=== PATIENT | female | born 1985 | race Caucasian/White ===

== ENCOUNTER 2017-06-28 13:57 | Emergency (ER) | payer OTHER, MEDICAID, SELFPAY | END 2017-06-28 16:21 | disposition home or self-care (01) | PROVIDERS: Emergency Provider Emergency Medicine; PCP Family Medicine; Visit Provider Emergency Medicine | DX: R11.2 Nausea with vomiting, unspecified (principal); E86.0 Dehydration; R19.7 Diarrhea, unspecified | CPT/HCPCS: 80053; 81003; 81025; 83690; 85025; 96361; 96374; 99058; 99284; J2405 ==

== ENCOUNTER → 2018-01-07 08:36 | Outpatient (CLI) | payer OTHER, MEDICAID, SELFPAY ==
--- NOTE | 2018-01-07 | DI.US.S_ITS ---
PROCEDURE: US OB <= 14 WEEKS FETUS INDICATIONS: SIZE AND DATES OUTSIDE/PRIOR DATING DATA: Last menstrual period (LMP): 10/16/17. LMP-based estimated date of delivery (ASHWIN): 07/23/18. First dating scan (date and location): 01/07/18. Estimated date of delivery (ASHWIN) from first dating scan: 07/25/18. TECHNIQUE: Real-time scanning was performed of the fetus and maternal pelvic organs, with image documentation. Endovaginal scanning was also performed to better visualize the fetus and maternal ovaries. COMPARISON: None. FINDINGS: Embryo: 4.9 cm crown-rump length correlates with a gestational age of 11 weeks 4 days. Heart rate 169 beats per minute. Measurement variability in dating: +/- 4 weeks by LMP, +/- 7 days by mean sac diameter (use before 6 weeks gestation if crown-rump length not able to be measured), +/- 5 days by crown-rump length (up to 8 weeks 6 days gestation), +/- 7 days by crown-rump length (up to 13 weeks 6 days gestation). Maternal organs: Ovaries normal considering gestational status. Limited images through the kidneys demonstrate no hydronephrosis. IMPRESSION: 11 week 4 day gestational age with delivery date projected to be centered on 07/25/18, lesser -5 days. anatomic survey at 21 weeks gestation is recommended. Dictated by: Charlie Trujillo M.D. on 01/07/2018 at 9:27 Approved by: Charlie Trujillo M.D. on 01/07/2018 at 9:28
== END ==
PROVIDERS: PCP Family Medicine; Visit Provider Family Medicine
DX: Z34.91 Encounter for supervision of normal pregnancy, unspecified, first trimester (principal); Z36.89 Encounter for other specified antenatal screening; Z3A.11 11 weeks gestation of pregnancy
CPT/HCPCS: 76801

== ENCOUNTER → 2018-03-04 10:52 | Outpatient (CLI) | payer OTHER, MEDICAID, SELFPAY ==
--- NOTE | 2018-03-04 | DI.US.S_ITS ---
PROCEDURE: US OB >= 14 WEEKS FETUS INDICATIONS: SCAN OUTSIDE/PRIOR DATING DATA: Last menstrual period (LMP): 10/16/17. LMP-based estimated date of delivery (ASHWIN): 07/23/18. First dating scan (date and location): 01/07/18. Estimated date of delivery (ASHWIN) from first dating scan: 07/25/18. TECHNIQUE: Real-time scanning was performed of the fetus, with image documentation and biometric measurements. Endovaginal scanning: No COMPARISON: [facility], OB <= 14 WEEKS FETUS, 01/07/2018, 8:56. FINDINGS: General: A single living intrauterine gestation is present. Presentation: Transverse. Placenta: Placental position is posterior, without previa. Amniotic fluid index: 15.4 cm, normal range is 5-24 cm. heart rate: 147 beats per minute. Maternal cervical canal: 4.7 cm long. Normal lower limit is 2.5 cm. biometrics: Biparietal diameter: 20 weeks 0 days Head circumference: 19 weeks 6 days Abdominal circumference: 19 weeks 6 days Femur length: 19 weeks 4 days Estimated gestational age from initial scan: 19 weeks 4 days Composite gestational age from present scan: 19 weeks 6 days Estimated weight and percentile: 310 g; 55th percentile Measurement variability for biometric dating: +/- 7 days from 14 weeks to 15 weeks 6 days gestation, +/- 10 days from 16 weeks to 21 weeks 6 days gestation, +/- 2 weeks from 22 weeks to 27 weeks 6 days gestation, +/- 3 weeks for 28 weeks gestation or later. weight reference: 4500 g or EFW >90/95% is considered macrosomia or large for gestational age. EFW <10% is small for gestational age. EFW 5% or less is considered intra-uterine growth restriction. Anatomic survey: Neuro: Ventricles are non-dilated at less than 10 mm. Cisterna magna is normal at 3-11 mm. Cerebellum is normal in size and morphology. Nuchal skin fold: Normal at less than 6 mm between 14-21 weeks gestational age. Face: Nose and lips, facial profile are normal. Spine: No evidence for spina bifida. Heart: 4-chambered heart is present, with normal ventricular outflow tracts. Diaphragm: Diaphragm is intact. Stomach: Left-sided stomach is present. Kidneys: No hydronephrosis. Normal is less than 5 mm in 2nd trimester, less than 7 mm in 3rd trimester. Cord: 3-vessel cord has orthotopic insertion. Bladder: Normal in size. Extremities: All 4 extremities identified. IMPRESSION: 1. Single living IUP redemonstrated and interval growth is normal. 2. Normal anatomic survey. Dictated by: Samy STARKEY Interpreted: Lauren Bolden MD on 03/04/2018 at 12:03 Approved by: Lauren Bolden MD, PhD on 03/04/2018 at 14:51
== END ==
PROVIDERS: PCP Family Medicine; Visit Provider Family Medicine
DX: Z36.89 Encounter for other specified antenatal screening (principal); Z3A.19 19 weeks gestation of pregnancy
CPT/HCPCS: 76811

== ENCOUNTER → 2018-06-24 15:24 | Outpatient (REF) | payer OTHER, MEDICAID, SELFPAY | LOC: LAB 15:24 | PROVIDERS: PCP Family Medicine; Visit Provider Family Medicine | DX: Z32.01 Encounter for pregnancy test, result positive (principal) | CPT/HCPCS: 87081; 87147 ==

== ENCOUNTER → 2018-07-16 14:15 | Outpatient (REF) | payer OTHER, MEDICAID, SELFPAY | LOC: LAB 14:15 | PROVIDERS: PCP Family Medicine; Visit Provider Family Medicine | DX: Z34.90 Encounter for supervision of normal pregnancy, unspecified, unspecified trimester (principal) | CPT/HCPCS: 87081; 87147 ==

== ENCOUNTER 2018-07-28 09:43 | Outpatient (CLI) | payer OTHER, MEDICAID, SELFPAY | END 2018-07-28 10:20 | disposition home or self-care (01) | LOC: OB 07-29 12:52 | PROVIDERS: PCP Family Medicine; Visit Provider Family Medicine | DX: O48.0 Post-term pregnancy (principal); Z3A.40 40 weeks gestation of pregnancy | CPT/HCPCS: 59025; G0378; G0379 ==

== ENCOUNTER → 2018-07-29 11:50 | Outpatient (CLI) | payer OTHER, MEDICAID, SELFPAY ==
--- NOTE | 2018-07-29 | DI.US.S_ITS ---
PROCEDURE: US OB LIMITED INDICATIONS: POST DATES, ELISHA OUTSIDE/PRIOR DATING DATA: Last menstrual period (LMP): 10/16/17. LMP-based estimated date of delivery (ASHWIN): 07/23/18. First dating scan (date and location): 01/07/18. Estimated date of delivery (ASHWIN) from first dating scan: 07/25/18. TECHNIQUE: Real-time scanning was performed of the fetus, with image documentation and biometric measurements. Endovaginal scanning: No COMPARISON: [facility], OB >= 14 WEEKS FETUS, 03/04/2018, 11:13. FINDINGS: General: A Presentation: Vertex with spine to the maternal left. Placenta: Placental position is posterior right lateral, without previa. Amniotic fluid index: 14 cm, normal range is 5-24 cm. heart rate: 155 beats per minute. Maternal cervical canal: Not well-seen. IMPRESSION: Single living IUP redemonstrated and amniotic fluid index is normal. Dictated by: Samy Clark [facility] Interpreted: Vijay Hammond MD on 07/29/2018 at 13:05 Approved by: Vijay Hammond M.D. on 07/29/2018 at 14:29
== END ==
PROVIDERS: Visit Provider Family Medicine
DX: O48.0 Post-term pregnancy (principal); Z3A.40 40 weeks gestation of pregnancy
CPT/HCPCS: 76815

== ENCOUNTER 2018-07-31 15:41 | Outpatient (CLI) | payer OTHER, MEDICAID, SELFPAY | END 2018-07-31 18:12 | disposition home or self-care (01) | LOC: LABOR 18:00 → OB 08-04 16:35 | PROVIDERS: Visit Provider Obstetrics & Gynecology | DX: O48.0 Post-term pregnancy (principal); Z3A.41 41 weeks gestation of pregnancy | CPT/HCPCS: 59025; 59050; G0378; G0379 ==

== ENCOUNTER 2018-08-03 17:55 | Inpatient (IN) | payer OTHER, MEDICAID, SELFPAY ==
[2018-08-03] MEDS: miSOPROStol 25 MCG TABLET VAG (19:40)
[2018-08-03 20:51] VITALS: BP 131/66
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
[2018-08-04 09:10] LABS: Add Manual Diff / Slide Review NO; Basophils Absolute Auto 0 /uL (0-100); Basophils Percent Auto 0.2 % (0-2); Eosinophils Absolute Auto 200 /uL (0-450); Eosinophils Percent Auto 1.2 % (2-4); Hematocrit 37.4 % (36-46); Hemoglobin 12.9 g/dL (12.0-16.0); Lymphocytes Absolute Auto 1400 /uL (1100-4500); Lymphocytes Percent Auto 10.7 % (25-40); Mean Corpuscular HGB Conc 34.5 % (30-36); Mean Corpuscular Hemoglobin 32.5 PG (26-34); Monocytes Absolute Auto 1100 /uL (0-900); Neutrophils Absolute Auto 10800 /uL (1500-7000); Neutrophils Percent Auto 79.9 % (50-75); Platelet Count 222 X10^3/uL (150-400); Red Blood Cell Count 3.98 X10^6/uL (4.0-5.2); Red Cell Distribution Width 13.2 % (11.6-14.8); White Blood Cell Count 13.5 X10^3/uL (4.5-11.0)
--- NOTE | 2018-08-04 13:12 | PM.OBPNLAB ---
Date/Time Date Patient Seen: 08/04/18 Time Patient Seen: 13:13 Pain Control Pain control: tolerating well Pelvic Exam Dilation (cm): 0 Effacement (%): 506 station: 0 Amniotic membrane status: Intact Contractions Contractions on admission: none Contraction pattern: Irregular Contraction intensity: Moderate Status status: Category l Assessment and Plan Assessment: induction ongoing Plan: continuous present management Comments: Discussed with patient will check blood sugar. We discussed management options. Needs to have a more intense contraction pattern. Cervix is slightly more thin but no other change. Discussed Pitocin she would like to hold till a little while. Will give her 3 or 4 more hours to see if she makes changes she does not and will need Pitocin if she does we may consider rupture. She understands questions answered to both her and her significant other.
--- NOTE | 2018-08-04 17:10 | PM.OBPNLAB ---
Date/Time Date Patient Seen: 08/04/18 Time Patient Seen: 17:11 Pain Control Pain control: tolerating well Pelvic Exam Dilation (cm): 0 Effacement (%): 60 station: -1 Amniotic membrane status: Intact Contractions Contraction frequency (min): 3 Contraction pattern: Irregular Contraction intensity: Moderate Status status: Category l Assessment and Plan Assessment: active labor Plan: continuous present management Comments: Patient with too many contractions repeat Cytotec but no cervical change. We had long discussion about Pitocin which was be the recommended course at this point. Patient would like to give it some more time see if we can rupture at this point she still closed and will discuss in a.m.. She would like to start Pitocin in a.m.. Will do that and 5 or r 6 tomorrow morning and prepare for cervical change. They understand discussed Pitocin extensively questions answered.
[2018-08-04] MEDS: DINOPROSTONE VAG (CERVIDIL) 10 MG VAG (20:20)
[2018-08-04] MEDS: LACTATED RINGERS 1,000 ML 1000 ML IV (21:30)
[2018-08-05] MEDS: OXYTOCIN PREMIX 30 UNIT/500 ML PLAST..BAG IV (05:49)
[2018-08-05] MEDS: LACTATED RINGERS 1,000 ML 100 ML IV ×2 (05:51→17:06)
--- NOTE | 2018-08-05 08:15 | PM.OBPNLAB ---
Date/Time Date Patient Seen: 08/05/18 Time Patient Seen: 08:16 Pain Control Pain control: tolerating well Pelvic Exam Effacement (%): 80 station: -1 Amniotic membrane status: Intact Contractions Contraction frequency (min): 3 Contraction pattern: Regular Contraction intensity: Moderate Status status: Category l Assessment and Plan Assessment: induction ongoing Plan: continuous present management Comments: Patient with some changed last night with Cervidil. Having contractions with Pitocin will see how she does. She has made cervical change. Hopefully we can consider rupture at noon. If not may back back up and replace Cervidil. Have to see how the day goes. Hopefully can rupture soon. Pain control was discussed. Seems to be doing okay. Otherwise no questions today. Understands goals and procedure.
--- NOTE | 2018-08-05 08:18 | P.PNOB_ITS ---
Date/Time Date Patient Seen: 08/05/18 Time Patient Seen: 08:16 Pain Control Pain control: tolerating well Pelvic Exam Effacement (%): 80 station: -1 Amniotic membrane status: Intact Contractions Contraction frequency (min): 3 Contraction pattern: Regular Contraction intensity: Moderate Status status: Category l Assessment and Plan Assessment: induction ongoing Plan: continuous present management Comments: Patient with some changed last night with Cervidil. Having contractions with Pitocin will see how she does. She has made cervical change. Hopefully we can consider rupture at noon. If not may back back up and replace Cervidil. Have to see how the day goes. Hopefully can rupture soon. Pain co ntrol was discussed. Seems to be doing okay. Otherwise no questions today. Understands goals and procedure.
--- NOTE | 2018-08-05 12:49 | PM.OBPNLAB ---
Date/Time Date Patient Seen: 08/05/18 Time Patient Seen: 12:49 Pain Control Pain control: tolerating well Pelvic Exam Dilation (cm): 0 Effacement (%): 80 station: -1 Amniotic membrane status: Intact Contractions Contraction frequency (min): 3 Contraction pattern: Regular Contraction intensity: Moderate Status status: Category l Assessment and Plan Assessment: induction ongoing Plan: continuous present management Comments: Really known significant change there has been some improvement in cervix coming forward. She is having a little more intensity. At this point will continue Pitocin may need to consider repeating Cervidil if not making any change by tonight. Unable to rupture through current cervix. Discussed with patient she understands questions answered
--- NOTE | 2018-08-05 17:36 | PM.OBPNLAB ---
Date/Time Date Patient Seen: 08/05/18 Time Patient Seen: 17:37 Pain Control Pain control: tolerating well Pelvic Exam Dilation (cm): 0 Effacement (%): 80 station: -1 Amniotic membrane status: Intact Contractions Contractions on admission: irregular Pitocin rate (mU/min): 20 Contraction frequency (min): 3 Contraction pattern: Regular Contraction intensity: Moderate Status status: Category l Assessment and Plan Assessment: induction ongoing Plan: continuous present management Comments: Still not a lot of cervical change. Not been able to get an active labor pattern. Will discontinue pit restarts of a dull if not improved in the next 2 hours feed and start it again in the morning. Discussed with both her and her significant other. She understands questions answered
[2018-08-05] MEDS: DINOPROSTONE VAG (CERVIDIL) 10 MG VAG (21:07)
--- NOTE | 2018-08-06 07:59 | PM.OBPNLAB ---
Date/Time Date Patient Seen: 08/06/18 Time Patient Seen: 07:59 Pain Control Pain control: tolerating well Pelvic Exam Dilation (cm): 0 Effacement (%): 80 station: -1 Amniotic membrane status: Intact Contractions Contraction frequency (min): 3 Contraction pattern: Regular Contraction intensity: Moderate Status status: Category l Assessment and Plan Assessment: induction ongoing Plan: continuous present management Comments: No cervical significant change. Patient has had Pitocin and pretty extensive prostate gland and treatment without significant change. She still closed so Pickering bulb or laminae area are not options. I do not think there is any other options at this point other than section we could continue Pitocin today and see how it goes but we have not been successful and had no cervical change do not really understand why we discussed the case it appears as if it will probably be an operative delivery. She is going to make a decision if we want to do it this morning or later tonight.
--- NOTE | 2018-08-06 09:38 | PM.OBPNLAB ---
Date/Time Date Patient Seen: 08/06/18 Time Patient Seen: 09:38 Pain Control Pain control: tolerating well Pelvic Exam Dilation (cm): 0 Effacement (%): 80 station: -1 Amniotic membrane status: Intact Contractions Contraction frequency (min): 3 Contraction pattern: Regular Contraction intensity: Moderate Status status: Category l Assessment and Plan Assessment: other Plan: Comments: Long discussion with patient. She has had no cervical warp changer the last 36 hours she has had multiple treatments without success and at this point believe operative delivery is only option. We discussed possible Pitocin today but we had no ability to get any contractions working and I do not think it is going to be helpful. We discussed with patient extensively we discussed today which she is not ready to do versus tomorrow she will be discharged to home baby looks very good still has category 1 strip and labor precautions discussed. Discussed consent infection bleeding injury to bowel and bladder injury to baby bleeding need for transfusion, hysterectomy, . Poor healing. Discussed process procedure from the time she gets here into the time surgery is done and she is back with her baby. Questions were answered. Patient will be back at 9:30 a.m. in morning.
--- NOTE | 2018-08-06 09:41 | P.PNOB_ITS ---
Date/Time Date Patient Seen: 08/06/18 Time Patient Seen: 09:38 Pain Control Pain control: tolerating well Pelvic Exam Dilation (cm): 0 Effacement (%): 80 station: -1 Amniotic membrane status: Intact Contractions Contraction frequency (min): 3 Contraction pattern: Regular Contraction intensity: Moderate Status status: Category l Assessment and Plan Assessment: other Plan: Comments: Long discussion with patient. She has had no cervical supervisor policy change clerks the last 36 hours she has had multiple treatments without success and at this point believe operative delivery is only option. We discussed possible Pitocin today but we had no ability to get any contractions working and I do not think it is going to be helpful. We discussed with patient extensively we discussed C- section today which she is not ready to do versus tomorrow she will be discharged to home baby looks very good still has category 1 strip and labor precautions discussed. Discussed consent infection bleeding injury to bowel and bladder injury to baby bleeding need for transfusion, hysterectomy, . Poor healing. Discussed process procedure from the time she gets here into the time surgery is done and she is back with her baby. Questions were answered. Patient will be back at 9:30 a.m. in morning.
[2018-08-06 10:19] VITALS: BP 131/66; PULSE 80; RESP 18; TEMP 36.4
--- NOTE | 2018-08-06 17:18 | PM.OBDS.1 ---
Discharge Providers Date of admission: 08/03/18 17:55 Discharge Date: 08/06/18 Discharge provider: Basil Correa MD Summary Date Patient Seen: 08/06/18 Time Patient Seen: 07:18 Procedures: Attempted induction both Cytotec, Cervidil, Pitocin Patient was brought in for post dates. She had 1 Cytotec placed on the 1st night and began jj pretty frequently in the 2-3 minute range. Minimal in to mild to moderate intensity. Secondary that she had not had a 2nd 1 placed. She had some cervical change the 1st day due to patient's request nothing further was done through the course of that day it appeared it is she was making change baby did come down a little bit but no cervical change happened. Cervidil was then placed with some slight improvement in effacement over the next 12 hours. Pitocin was began but she did not have any significant ability to get into labor. She never attained anything other than every 2 minutes contractions that were moderate in intensity with no cervical change. Would discontinue the Pitocin restarted the Cervidil and continued to have no significant improvement. heart monitor was reactive through the course of this induction. After long discussion with patient understanding that at 42 weeks options are limited and were unable to get her into labor. Unable to use Pickering bulb or laminae area secondary to her cervix. This point we elected for operative delivery. Since baby looked good patient would requesting the next day we will set up tomorrow routine signs concern discussed. movement discussed. Will see tomorrow. Time Spent with Patient Total time spent providing and/or coordinating discharge services: Objective Labs Result Diagrams: 08/03/18 08:55 Exam Vital Signs (past 8 hours): - 08/06/18 10:19 Temperature 97.5 F L Pulse Rate 80 Respiratory Rate 18 Blood Pressure 131/66 Discharge Plan Discharge Plan Patient Disposition: Home Discharge Med Rec/Prescriptions Prescriptions: No Action No Known Home Medications RF: 0 Discharge Data Attending Provider: Basil Correa Admit Date/Time: 08/03/18 17:55 Discharges patient from system. Discharge Date/Time: 08/06/18 10:20
== END 2018-08-06 10:20 | disposition home or self-care (01) | DRG 951 ==
PROVIDERS: Admitting Provider Family Medicine; Visit Provider Family Medicine
DX: O48.0 Post-term pregnancy (principal); O61.0 Failed medical induction of labor; Z3A.41 41 weeks gestation of pregnancy
CPT/HCPCS: 85025; 86850; 86900; 86901; G0379; J2590

== ENCOUNTER 2018-08-07 07:11 | Inpatient (IN) | payer OTHER, MEDICAID, SELFPAY ==
[2018-08-07 08:23] VITALS: BP 133/77
[2018-08-07] MEDS: LACTATED RINGERS 1,000 ML 1000 ML IV ×2 (08:40→10:00)
[2018-08-07 09:21] LABS: Add Manual Diff / Slide Review NO; Basophils Absolute Auto 0 /uL (0-100); Basophils Percent Auto 0.2 % (0-2); Eosinophils Absolute Auto 100 /uL (0-450); Eosinophils Percent Auto 0.7 % (2-4); Hematocrit 36.8 % (36-46); Hemoglobin 12.5 g/dL (12.0-16.0); Lymphocytes Absolute Auto 1100 /uL (1100-4500); Lymphocytes Percent Auto 8.7 % (25-40); Mean Corpuscular HGB Conc 33.8 % (30-36); Mean Corpuscular Hemoglobin 31.8 PG (26-34); Monocytes Absolute Auto 1100 /uL (0-900); Monocytes Percent Auto 8.8 % (3-14); Neutrophils Absolute Auto 10000 /uL (1500-7000); Neutrophils Percent Auto 81.6 % (50-75); Platelet Count 224 X10^3/uL (150-400); Red Blood Cell Count 3.92 X10^6/uL (4.0-5.2); Red Cell Distribution Width 13.1 % (11.6-14.8); White Blood Cell Count 12.3 X10^3/uL (4.5-11.0)
--- NOTE | 2018-08-07 10:47 | PM.PN.1 ---
Subjective Date Patient Seen: 08/07/18 Time Patient Seen: 10:47 Interval history: Patient much more comfortable. Has decided that this is the right choice. Feeling good about that. No other changes or complaints. Good movement. No leaking fluid no bleeding. NST is reactive this morning. Does not have any definitive questions but does have a plan which we discussed. Exam Vital Signs (past 8 hours): - 08/07/18 08:23 Blood Pressure 133/77 Narrative Exam Narrative: Alert smiling female in no acute distress. Lungs are clear. Heart regular rate and rhythm. Abdomen is soft positive bowel sounds gravid vertex extremities without cyanosis clubbing edema. Objective Labs Result Diagrams: 08/07/18 08:50 Labs: Laboratory Results - last 24 hr 08/07/18 08/07/18 08:50 08:50 WBC 12.3 H RBC 3.92 L Hgb 12.5 Hct 36.8 MCV 94.0 MCH 31.8 MCHC 33.8 RDW 13.1 Plt Count 224 Neut % (Auto) 81.6 H Lymph % (Auto) 8.7 L [place] % (Auto) 8.8 Eos % (Auto) 0.7 L Baso % (Auto) 0.2 Neut # (Auto) 61829 H Lymph # (Auto) 1100 [place] # (Auto) 1100 H Eos # (Auto) 100 Baso # (Auto) 0 Blood Type O Positive Antibody Screen Negative Assessment & Plan Assessment & Plan narrative: 42+ week intrauterine with failed induction here for his primary low transverse section. Questions were answered consent was signed patient is comfortable and will proceed.
--- NOTE | 2018-08-07 12:15 | PM.OP.1 ---
Operative Date/Time/Diagnoses Date of procedure: 08/07/18 Time of procedure: 12:15 Pre-op diagnosis: Forty-two +week intrauterine Failed induction Post-op diagnosis: same Procedure & Clinicians Procedure: Primary low transverse section Same procedure as scheduled: Yes Indications: Attempted induction for 3 and half days without success elective section Surgeon: Basil Correa Reed Cleaner: Mally Hernandez Click Yes if Unassisted: No Anesthesia Type: Spinal Operative Notes Findings: Viable male weight and Apgars not available no resuscitation required. Positive light meconium. Normal pelvic organs Closure Type: primary Specimen(s): none sent Applied: catheter Estimated Blood Loss (mL): 400 Blood products transfused: none Procedure in detail: Patient presented an NST was reactive. Consent was rediscussed resigned. Patient was taken to the operative theater and scopes procedure was followed. Spinal was placed without complications. Excellent result. She was placed in the supine position prepped and draped in usual manner after Pickering was placed. Pfannenstiel incision was made through skin without complications. His blunt dissection down to the subcutaneous tissue. One bleeder in the midline was cauterized. The fascia was identified entered in the midline. extended laterally with curved mayos. Rodriguez reused elevate the fascia and bluntly dissected off the muscle layer except in the midline where it was ceased removed with scissors. This was repeated inferiorly without complications. Muscle layer was easily peritoneum was identified. was elevated with hemostats entered under direct visualization. Extended bluntly. Bladder blade was placed. Bladder flap was then incised and developed. Bladder blade was then placed into the bladder flap. A low transverse incision was then made for scored across the uterus and then just sharply dissected until meconium fluid was noted. was extended laterally bluntly. Head was then mobilized and delivered (no nuchal cord. Rest child was then delivered. No resuscitation was required. Bulb suction. Cord was clamped and cut. Handed off to awaiting nurse. Crying lustly. Cord bloods were obtained. Placenta was then delivered manually intact. wet lap sponge to used to swipe the inside of the uterine contents for products of conception. This was done twice. No bleeding was noted. ring forceps were used grafts corner of the uterine incision along with inferior aspect he a ring forceps was placed through the cervix and vagina. Handed off the operative theater. Uterine incision was closed with running locked 0 chromic. Aseptic a imbricating suture was then used without complications excellent bleeding control. Abdominal contents were then irrigated with saline and removed. Uterine incision was then re-evaluated and found to be dry. 3 0 Vicryl was used to close bladder flap in a running manner. Peritoneum was then closed with 3 0 Vicryl. Three interrupted 2 0 Vicryl sutures were used to approximate the muscle layer. Fascia was closed with running 0 Vicryl. 330 Vicryl interrupted sutures were used to approximate the wound edge. Closed skin with running 4.0 subcuticular sutures. Steri-Strips and dressing was applied. All sponge instrument and needle counts were correct. Mother and infant stable condition Complications: none Condition: stable Plan for aftercare: Transferred to labor and delivery
[2018-08-07] MEDS: DEXTROSE 5%-LACTATED RINGERS 1,000 ML 100 ML IV (13:15)
[2018-08-07] MEDS: KETOROLAC 30 MG/ML VIAL IV (18:45)
[2018-08-07] MEDS: OXYCODONE/ACETAMINOPHEN 5/325 TABLET 1 TAB PO (21:16)
[2018-08-08] MEDS: KETOROLAC 30 MG/ML VIAL IV ×2 (00:35→07:39)
[2018-08-08 06:22] LABS: Add Manual Diff / Slide Review NO; Basophils Absolute Auto 0 /uL (0-100); Basophils Percent Auto 0.3 % (0-2); Eosinophils Absolute Auto 200 /uL (0-450); Eosinophils Percent Auto 1.5 % (2-4); Hematocrit 33.8 % (36-46); Hemoglobin 11.6 g/dL (12.0-16.0); Lymphocytes Absolute Auto 1400 /uL (1100-4500); Lymphocytes Percent Auto 13.6 % (25-40); Mean Corpuscular HGB Conc 34.4 % (30-36); Mean Corpuscular Hemoglobin 32.2 PG (26-34); Mean Corpuscular Volume 93.5 fL (80-100); Monocytes Absolute Auto 1000 /uL (0-900); Monocytes Percent Auto 9.8 % (3-14); Neutrophils Absolute Auto 7500 /uL (1500-7000); Neutrophils Percent Auto 74.8 % (50-75); Platelet Count 194 X10^3/uL (150-400); Red Blood Cell Count 3.61 X10^6/uL (4.0-5.2); Red Cell Distribution Width 13.1 % (11.6-14.8)
--- NOTE | 2018-08-08 13:16 | PM.OBPNLAB ---
Pelvic Exam station: -1
--- NOTE | 2018-08-08 13:17 | PM.PN.1 ---
Subjective Date Patient Seen: 08/08/18 Time Patient Seen: 13:17 Interval history: Doing well without problems. Had some grogginess with oxycodone. Urinating normally breast feeding going well. Lochia normal Exam Vital Signs (past 8 hours): Afebrile, vital signs stable Chest clear to auscultation Cor regular rate and rhythm Abdomen benign. Positive bowel sounds, uterus below the umbilicus. Incision clean and dry Extremities trace edema, DTRs 3+ at the patella no clonus Objective Labs Result Diagrams: 08/08/18 06:06 Labs: Laboratory Results - last 24 hr 08/08/18 06:06 WBC 10.0 RBC 3.61 L Hgb 11.6 L Hct 33.8 L MCV 93.5 MCH 32.2 MCHC 34.4 RDW 13.1 Plt Count 194 Neut % (Auto) 74.8 Lymph % (Auto) 13.6 L [place] % (Auto) 9.8 Eos % (Auto) 1.5 L Baso % (Auto) 0.3 Neut # (Auto) 7500 H Lymph # (Auto) 1400 [place] # (Auto) 1000 H Eos # (Auto) 200 Baso # (Auto) 0 Assessment & Plan Assessment & Plan narrative: Postop day 1. Status post primary section secondary to inability to develop labor. Doing well. Routine care
--- NOTE | 2018-08-08 13:17 | P.PNOB_ITS ---
Pelvic Exam station: -1
[2018-08-08] MEDS: IBUPROFEN 600 MG TABLET PO ×2 (13:37→19:33)
[2018-08-08] MEDS: HYDROCODONE/ACET 5/325 TABLET 1 TAB PO ×2 (13:50→19:33)
[2018-08-09] MEDS: IBUPROFEN 600 MG TABLET PO ×2 (01:44→08:29)
[2018-08-09] MEDS: HYDROCODONE/ACET 5/325 TABLET 1 TAB PO ×2 (01:45→08:29)
[2018-08-09] MEDS: DOCUSATE 250 MG CAPSULE PO (08:29)
[2018-08-09 09:01] VITALS: BP 133/77; PULSE 70; RESP 18; TEMP 36.6
--- NOTE | 2018-08-09 09:55 | P.DS_ITS ---
Discharge Providers Date of admission: 08/07/18 07:11 Discharge Date: 08/09/18 Consults: 08/07/18 12:10 Consult to [employer] Routine Comment: Discharge provider: Mally Hernandez MD Summary Date Patient Seen: 08/09/18 Time Patient Seen: 09:53 Hospital Course: Patient with prolonged hospitalizations with attempts to initiate labor at 42 weeks gestation on IMV able to initiate labor after pea gel x2 and performed. Uncomplicated and post . Patient discharged home on day 2. In stable condition with routine instructions regarding infection, feeding, etc. Discharge medications Motrin 600 mg 3 times daily with food and hydrocodone as needed Discharge activity, pelvic rest, no driving, no heavy lifting Discharge follow-up with Dr. Correa on Friday Peripartum Data Delivery Method: Section complications: none Status at Discharge Cognitive/behavioral status at discharge: oriented Functional status at discharge: independent ambulation Overall status at discharge: patient is progressing back to baseline Time Spent with Patient Total time spent providing and/or coordinating discharge services: Greater than 30 minutes Objective Labs Result Diagrams: 08/08/18 06:06 Exam Narrative Exam Narrative: Afebrile vital signs are stable Chest clear to auscultation Cor regular rate and rhythm Abdomen: Positive bowel sounds, soft, nontender, nondistended Incision clean and dry Uterus below the umbilicus no significant tenderness Extremities edema, DTRs are intact Discharge Plan Discharge Plan Patient Disposition: Home Discharge Med Rec/Prescriptions Prescriptions: New hydrocodone-acetaminophen 5-325 mg Tablet 1 tab PO Q4HR PRN (Reason: Pain, Moderate (4-6)) Qty: 40 RF: 0 ibuprofen 600 mg Tablet 600 mg PO Q6HR PRN (Reason: As Needed For Fever/Mild Pain) Qty: 40 RF: 0 No Action No Known Home Medications RF: 0 Provider Discharge Instructions Diet comment: as tolerated Activity: pelvic rest, no heavy lifting Discharge Data Attending Provider: Basil Correa Admit Date/Time: 08/07/18 07:11
[2018-08-09] MEDS: MEASLES,MUMPS,RUBELLA VACC/PF 0.5 ML VIAL SUBCUT (15:00)
== END 2018-08-09 15:30 | disposition home or self-care (01) | DRG 540 ==
PROVIDERS: Admitting Provider Family Medicine; Visit Provider Family Medicine
DX: O48.0 Post-term pregnancy (principal); O62.0 Primary inadequate contractions; Z3A.42 42 weeks gestation of pregnancy; Z37.0 Single live birth; O61.0 Failed medical induction of labor; O77.0 Labor and delivery complicated by meconium in amniotic fluid
CPT/HCPCS: 36415; 59050; 84112; 85025; 86850; 86900; 86901; G0379; J1885; J2250; J2274; J2590; J7121

== ENCOUNTER → 2021-04-11 12:07 | Outpatient (CLI) | payer OTHER, MEDICAID, SELFPAY ==
--- NOTE | 2021-04-11 12:08 | DI.US.S_ITS ---
PROCEDURE: US PELVIC COMPLETE INDICATIONS: SPOTTING TECHNIQUE: Real-time scanning was performed of the pelvic organs, with image documentation. Additional endovaginal scanning was necessary due to incomplete visualization of the adnexal and endometrial structures by transabdominal scanning. COMPARISON: None. FINDINGS: Uterus: Uterus is anteverted and normal in size at 6.3 x 3.4 x 5 cm. The myometrium is predominantly homogeneous. The endometrium measures 5.7 mm combined thickness. Ovaries: The right ovary measures 2.3 x 1.8 x 3.1 cm. The left ovary measures 2.9 x 1.3 x 2.7 cm. The ovaries have a normal sonographic appearance. Less than 12 follicles can be seen in each ovary. No adnexal masses are seen. Other: No pathologic free abdominal or pelvic fluid. IMPRESSION: No significant abnormality. We strive to produce accurate, complete, and clear reports of imaging services. To assist us in improving patient care, this report was composed using standard report templates and voice recognition software. Therefore, it may contain abnormal punctuation, insertions and/or omissions. Occasional wrong-word or sound-alike substitutions may occur. Though we review the report and make efforts to correct it, we do recommend that the report be read carefully in proper context to recognize any text inaccuracies. Dictated by: Clolin Thomas M.D. on 04/11/2021 at 13:09 Approved by: Collin Thomas M.D. on 04/11/2021 at 13:16
== END ==
PROVIDERS: PCP Family Medicine; Referring Provider Physician Assistant; Visit Provider Physician Assistant
DX: N93.9 Abnormal uterine and vaginal bleeding, unspecified (principal); R10.2 Pelvic and perineal pain
CPT/HCPCS: 76830; 76856

== ENCOUNTER → 2022-08-30 15:06 | Outpatient (CLI) | payer OTHER, SELFPAY | PROVIDERS: PCP Family Medicine; Visit Provider Family Medicine | DX: N94.9 Unspecified condition associated with female genital organs and menstrual cycle (principal) | CPT/HCPCS: 87661; 87798; 87801 ==

== ENCOUNTER → 2023-08-12 15:01 | Outpatient (CLI) | payer OTHER, SELFPAY | PROVIDERS: PCP Family Medicine; Visit Provider Physician Assistant | DX: J02.9 Acute pharyngitis, unspecified (principal) | CPT/HCPCS: 87070 ==